=== PATIENT | male | born 1955 | race Caucasian/White ===

== ENCOUNTER 2023-03-08 00:57 | Day surgery (SDC) | payer MEDICARE, OTHER, SELFPAY ==
[2023-02-23 11:46] VITALS: BMI 25.9
--- NOTE | 2023-03-07 16:47 | PM.HPGS ---
History of Present Illness History of Present Illness Consent: Risks, benefits, and alternatives have been discussed and questions answered. Patient agrees to proceed with procedure. Chief complaint: neoplasm screening Narrative: Omari Irby is a 68 year old male who was referred for colon cancer screening. Review of Systems Review of Systems: All systems reviewed & are unremarkable except as noted in HPI and below PMFSH Past Medical History Medical History Abnormal fasting glucose glucose 94 on 12/28/2021 Actinic keratosis left [facility] BMI 26.0-26.9,adult BMI 27.0-27.9,adult Cancer of skin of left ear Colon cancer screening normal colonoscopy with Dr. Carr on 12/17/2012 Coronary artery spasm COVID-19 (~12/2021) COVID antibody test greater than 150 on 01/05/2022 Dupuytren's contracture of right hand right ring finger flexor tendon Encounter for prostate cancer screening Encounter for screening for other viral diseases (~12/2021) exposure to with COVID 1 month ago with COVID symptoms lasting 4 days but never tested Encounter for wellness examination in adult Epididymitis, right Folic acid deficiency folic acid 24 on 12/28/2021 with hemoglobin 15.6 Neoplasm of skin Nocturia PSA 0.69 on 12/28/2021 Overweight (BMI 25.0-29.9) Thrombocytopenia platelets 151 on 12/28/2021 Vitamin B12 deficiency anemia 670 on 12/28/2021 Vitamin D deficiency, unspecified slightly low at 29 on 12/28/2021 Surgical History Surgical History History of shoulder surgery (~2002) Family History Family History Mother Dementia Father Lung cancer Grandparent Carcinoma of colon Grandparent Suicide Grandparent Acute myocardial infarction Sibling Uterine cancer Social History Social History Smoking packs per day: 1 Smoking cigarettes per day: 20.0 Years smoked: 18 Smoking pack-years: 18.00 Smoking status: Former smoker Tobacco type: smokeless tobacco (1 can every 3-4 days) Smokeless tobacco user: chewing tobacco Alcohol intake: current Drinks per week: 14 Alcohol use details: 2 drinks/day Substance use: never Substance use type: does not use Lack of Food: Never True Current Housing: I Have Housing Concerned About Future Housing: No Difficulty Paying Gas/Electric Bills: No Difficulty Paying for Meds: No Currently Unemployed: No Education: Associate Degree Difficulty w/ Childcare or Family Care: No Living arrangements: with family Spiritual care concerns: No Meds Home Medications and Allergies Home Medications Medication Instructions Recorded Confirmed Type aspirin 81 mg tablet,delayed 81 mg PO DAILY 12/31/19 02/23/23 History release (Adult Low Dose Aspirin) cyanocobalamin (vitamin B-12) 1,000 mcg PO DAILY 01/04/21 02/23/23 History 1,000 mcg tablet cholecalciferol (vitamin D3) 50 2,000 unit PO DAILY 01/05/22 02/23/23 History mcg (2,000 unit) capsule amlodipine 5 mg tablet 5 mg PO DAILY #90 tabs 01/10/23 02/23/23 Rx folic acid 1 mg tablet 1 mg PO DAILY #90 tabs 01/10/23 02/23/23 Rx Allergies Allergy/AdvReac Type Severity Reaction Status Date / Time No Known Allergies Allergy Verified 03/08/23 08:38 Exam Const: General: alert Orientation/consciousness: patient oriented x3 Resp: Auscultation: clear to auscultation bilaterally Cardio: Rhythm: regular rhythm GI: GI Palp: Yes Soft to palpation and No Tenderness to palpation present (GI) Neuro: General: patient oriented x3 Assessment and Plan Assessment and plan (1) Colon cancer screening: Code(s): Z12.11 - Encounter for screening for malignant neoplasm of colon Status: Acute Asses
--- NOTE | 2023-03-08 07:35 | WPDANESEPPF ---
Anes - Initial Pre Proc Eval Procedure: Operation Date: 03/08/23 09:45 Proposed Procedures p Screening Colonoscopy - Krzysztof Núñez MD Date/Time: 03/08/23 07:35 Surgeon: Krzysztof Núñez MD Pre Op Diagnosis: neoplasm screening Patient Data Age: 68 Gender: M Height: 1.7 m Weight: 75 kg Allergies Allergy/AdvReac Type Severity Reaction Status Date / Time No Known Allergies Allergy Verified 03/08/23 08:38 Home Medications Medication Instructions Recorded Confirmed Type aspirin 81 mg tablet,delayed 81 mg PO DAILY 12/31/19 02/23/23 History release (Adult Low Dose Aspirin) cyanocobalamin (vitamin B-12) 1,000 mcg PO DAILY 01/04/21 02/23/23 History 1,000 mcg tablet cholecalciferol (vitamin D3) 50 2,000 unit PO DAILY 01/05/22 02/23/23 History mcg (2,000 unit) capsule amlodipine 5 mg tablet 5 mg PO DAILY #90 tabs 01/10/23 02/23/23 Rx folic acid 1 mg tablet 1 mg PO DAILY #90 tabs 01/10/23 02/23/23 Rx Patient hx anesthesia problems: none Family hx anesthesia problems: none Results Review: All pre-operative results and documents have been reviewed as part of the pre-operative evaluation. [facility] Past Medical History Medical History (Updated 01/10/23 @ 10:41 by Grant Arteaga MD) Abnormal fasting glucose glucose 94 on 12/28/2021 Actinic keratosis left mosque BMI 26.0-26.9,adult BMI 27.0-27.9,adult Cancer of skin of left ear Colon cancer screening normal colonoscopy with Dr. Carr on 12/17/2012 Coronary artery spasm COVID-19 (~12/2021) COVID antibody test greater than 150 on 01/05/2022 Dupuytren's contracture of right hand right ring finger flexor tendon Encounter for prostate cancer screening Encounter for screening for other viral diseases (~12/2021) exposure to with COVID 1 month ago with COVID symptoms lasting 4 days but never tested Encounter for wellness examination in adult Epididymitis, right Folic acid deficiency folic acid 24 on 12/28/2021 with hemoglobin 15.6 Neoplasm of skin Nocturia PSA 0.69 on 12/28/2021 Overweight (BMI 25.0-29.9) Thrombocytopenia platelets 151 on 12/28/2021 Vitamin B12 deficiency anemia 670 on 12/28/2021 Vitamin D deficiency, unspecified slightly low at 29 on 12/28/2021 Surgical History Surgical History (Updated 12/31/19 @ 09:59 by Cheli Segundo MA) History of shoulder surgery (~2002) Family History Family History (Updated 12/31/19 @ 10:01 by Cheli Segundo MA) Mother Dementia Father Lung cancer Grandparent Carcinoma of colon Grandparent Suicide Grandparent Acute myocardial infarction Sibling Uterine cancer Social History Social History (Updated 01/10/23 @ 09:47 by Cheli Segundo MA) Smoking packs per day: 1 Smoking cigarettes per day: 20.0 Years smoked: 18 Smoking pack-years: 18.00 Smoking status: Former smoker Tobacco type: smokeless tobacco (1 can every 3-4 days) Smokeless tobacco user: chewing tobacco Alcohol intake: current Drinks per week: 14 Alcohol use details: 2 drinks/day Substance use: never Substance use type: does not use Lack of Food: Never True Current Housing: I Have Housing Concerned About Future Housing: No Difficulty Paying Gas/Electric Bills: No Difficulty Paying for Meds: No Currently Unemployed: No Education: Associate Degree Difficulty w/ Childcare or Family Care: No Living arrangements: with family Spiritual care concerns: No Anes - Eval Final PreProcedure Day of Procedure 03/08/23 07:35 Patient weight: normal Heart: regular rate and rhythm Lungs: clear to auscultation and normal air movement Airway: Mallampati scale class II Neurological: alert and oriented Last oral intake: >/= 8 hours ASA classification: II Emergent: no Anesthetic plan: proceed Anesthesia type and monitoring: general GIVS Results Review: All pre-operative results and documen
[2023-03-08 08:40] VITALS: BP 121/87; PULSE 56; RESP 16; TEMP 35.9; O2SAT 100
[2023-03-08] MEDS: LACTATED RINGERS 1,000 ML 150 ML IV CONT (08:48)
[2023-03-08 09:17] VITALS: BP 102/66; PULSE 66; RESP 17; O2SAT 99
[2023-03-08 09:27] VITALS: BP 107/65; PULSE 56; RESP 15; O2SAT 99
[2023-03-08 09:37] VITALS: BP 102/67; PULSE 55; RESP 18; O2SAT 99
== END 2023-03-08 09:52 | disposition home or self-care (01) ==
PROVIDERS: PCP Family Medicine; Visit Provider Internal Medicine Gastroenterology
PROC: 0DJD8ZZ Inspection of Lower Intestinal Tract, Via Natural or Artificial Opening Endoscopic (ICD-10-PCS; CPT 45378; principal; 2023-03-08 09:45)
DX: Z12.11 Encounter for screening for malignant neoplasm of colon (principal); K57.30 Diverticulosis of large intestine without perforation or abscess without bleeding; E53.8 Deficiency of other specified B group vitamins; E55.9 Vitamin D deficiency, unspecified; F17.220 Nicotine dependence, chewing tobacco, uncomplicated; Z79.82 Long term (current) use of aspirin
CPT/HCPCS: G0121; J2704; J7120